=== PATIENT | female | born 1955 | race Caucasian/White ===

== ENCOUNTER 2017-03-18 06:28 | Day surgery (SDC) | payer BC ==
[~2017-03-18] VITALS: Ht 167.6 cm; Wt 72.6 kg
[~2017-03-18 06:28] MED LIST: BIOTIN5 MG PO; OCUVITE TABLET1 TA1 PO; ZANTAC150 MG PO; ZOFRAN ODT4 MG/UDTAB PO
[2017-03-18 07:25] LABS: BASOPHILS 0.3 % (0-2); EOSINOPHILS 1.7 % (0-7); HEMATOCRIT 45.3 % (36.0-48.0); HEMOGLOBIN 14.8 g/dL (12-16); IMMATURE GRANULOCYTES 0.1 % (0-5); LYMPHOCYTES 35.5 % (15-50); MCH 28.7 pg (26.0-34.0); MCHC 32.7 g/dL (31.0-37.0); MEAN PLATELET VOLUME 9.4 fL (7.4-10.4); MONOCYTES 8.7 % (2-11); NEUTROPHILS 53.7 % (40-80); PLATELET COUNT 358 10x3/uL (130-400); RBC 5.15 10x6/uL (4.00-5.40); RDW 13.4 % (11.5-14.5); WBC 7.2 10x3/uL (4.8-10.8)
[2017-03-18 07:33] LABS: CALC OSMOLALITY 281 mosm/kg (275-300); CALCIUM 9.6 mg/dL (8.5-10.1); CHLORIDE - SERUM 104 mmol/L (98-107); CREATININE - SERUM 0.8 mg/dL (0.6-1.3); GLUCOSE 105 mg/dL (74-106); POTASSIUM - SERUM 3.3 mmol/L (3.5-5.1); SODIUM 142 mmol/L (136-145); UREA NITROGEN 9 mg/dL (7-18); eGFR NON AFRICAN AMERICAN 77 mL/min (90-120)
[2017-03-18 07:45] VITALS: BP 155/80; Ht 167.6 cm; Wt 72.6 kg
[2017-03-18] MEDS ORDERED: HYDROCODONE-APA1 TAB PO (11:27)
--- NOTE | 2017-03-18 14:57 | NUR ---
1300 IV DC WITH CATHER TIP IN TACT
== END 2017-03-18 13:00 | disposition home or self-care (01) ==
LOC: D.OPS 06:28 → D.PAN 09:45 → D.OPS 10:10 → D.PAN 12:20 → D.OPS 12:20
PROVIDERS: Surgery
DX: K62.0 Anal polyp (principal); D22.5 Melanocytic nevi of trunk; I10 Essential (primary) hypertension; Z01.812 Encounter for preprocedural laboratory examination